=== PATIENT | female | born 1945 | race Caucasian/White ===

== ENCOUNTER 2019-09-21 08:50 | Outpatient (CLI) | payer OTHER, SELFPAY ==
--- NOTE | ~2019-09-21 | MM_ITS ---
EXAMINATION: MM screening gustavo BI w cricket HISTORY: Screening mammogram TECHNIQUE: Craniocaudal and mediolateral oblique 3-D tomosynthesis images were obtained and synthetic 2-D images were generated. CAD analysis was submitted and interpreted. COMPARISON: 09/10/2018, 09/07/2017, 08/28/2016 bilateral digital screening mammogram examinations BREAST PARENCHYMAL COMPOSITION: The breasts are heterogeneously dense, which may obscure small masses . No FINDINGS: Stable bilateral small benign intramammary lymph nodes. Minimal benign calcification. There is no evidence of suspicious mass, calcification, or architectural distortion to suggest malignancy in either breast. There has been no suspicious interval change. IMPRESSION: 1. No mammographic evidence of malignancy. 2. Recommend routine screening mammography in one year. BI-RADS Category 2: Benign finding(s). Reviewed, dictated and finalized at location A. R OPERATOR
== END 2019-09-21 08:51 | disposition home or self-care (01) ==
LOC: ANHIMG 08:53
PROVIDERS: PCP Family Medicine; Visit Provider Nurse Practitioner Family
DX: Z12.31 Encounter for screening mammogram for malignant neoplasm of breast (principal)
CPT/HCPCS: 77063; 77067

== ENCOUNTER 2020-03-30 15:55 | Emergency (ER) | payer OTHER, SELFPAY ==
[2020-03-30 16:04] VITALS: BP 183/86; PULSE 84; RESP 16; TEMP 36.4; O2SAT 100
--- NOTE | 2020-03-30 16:23 | ED.ABDPAIN ---
HPI - Abdominal Pain General Chief Complaint: Urogenital-Female Stated Complaint: pos kidney infection Source: patient Mode of arrival: ambulatory Limitations: no limitations History of Present Illness HPI narrative: Patient is a 74-year-old female who presents complaining of right sided back pain x2 weeks. She reports recently diagnosed with UTI and reports infection in kidneys . She reports that she continues to take antibiotics at this time. She reports urinary symptoms have decreased but back pain remains. She reports she takes gabapentin and meloxicam daily without relief. She reports pain increases when laying down and with position changes. She denies all other complaints. Related Data Home Medications Medication Instructions Recorded Confirmed ascorbic acid (vitamin C) 500 mg 500 mg PO DAILY 07/04/19 03/22/20 tablet calcium phosphate-vitamin D3 600 1 tablet PO DAILY tablet 07/04/19 03/22/20 mg-125 unit tablet gabapentin 100 mg capsule 100 mg PO TID 07/04/19 03/22/20 qafkfqkxqbr-qgozawsajyn-nqd D3 750 tablet PO 07/04/19 03/22/20 mg-600 mg-500 unit tablet loratadine 10 mg tablet 10 mg PO DAILY 07/04/19 03/22/20 multivitamin 1 tablet PO DAILY 07/04/19 03/22/20 Allergies Allergy/AdvReac Type Severity Reaction Status Date / Time No Known Allergies Allergy Unverified 03/22/20 08:12 Review of Systems Review of Systems: Narrative: CONSTITUTIONAL: Denies fever, chills, or sweats. EYES: Denies visual changes, redness, or discharge. ENT: Denies rhinorrhea, congestion, sore throat, or otalgia. CARDIOVASCULAR: Denies chest pain, palpitations, or edema. RESPIRATORY: Denies cough or dyspnea. GASTROINTESTINAL: Denies abdominal pain, nausea, vomiting, or diarrhea. GENITOURINARY: Denies dysuria or hematuria. SKIN: Denies rash or itching. MUSCULOSKELETAL: Reports back pain, denies joint pain, or myalgia. NEUROLOGIC: Denies headache, numbness, dizziness, or weakness. PSYCHIATRIC: Denies anxiety or depression. [facility] Past Medical History Medical History Anxiety Fibromyalgia Insomnia Osteopenia Family History Family History Mother Family history of arthritis Family history of congestive heart failure Father Family history of chronic obstructive pulmonary disease Family history of lymphoma Patient's father is Grandparent Family history of malignant neoplasm of breast Diabetes mellitus Social History Social History Smoking status: Never smoker Alcohol intake: never Exam Narrative: Exam Narrative: GENERAL: Well-appearing, well-nourished, and in no acute distress. HEAD: Normocephalic, atraumatic. EYES: EOMI. No redness or drainage. Conjunctiva are normal. ENT: Mucous membranes pink and moist. CHEST: No respiratory distress. Clear to auscultation. HEART: Regular rate and rhythm. No murmur appreciated. Normal peripheral pulses. GI: Soft, nontender without rebound, or guarding. No distention. MUSCULOSKELETAL: No bony tenderness. EXTREMITIES: Normal range of motion. No edema. SKIN: Warm, dry, no rash. NEURO: No focal deficits. Alert and oriented x3. Gait steady. PSYCH: Normal affect. No signs of depression or anxiety. Course Vital Signs Vital signs: Vital Signs Temperature 36.4 C L 03/30/20 16:04 Pulse Rate 84 03/30/20 16:04 Respiratory Rate 16 03/30/20 16:04 Blood Pressure 183/86 H 03/30/20 16:04 Pulse Oximetry 100 03/30/20 16:04 Temperature 36.4 C L 03/30/20 16:04 Pulse Rate 84 03/30/20 16:04 Respiratory Rate 16 03/30/20 16:04 Blood Pressure 183/86 H 03/30/20 16:04 Pulse Oximetry 100 03/30/20 16:04 Reviewed. Patient has been instructed to follow-up with her PCP regarding her blood pressure. MDM - Abdominal Pain MDM Narrative Medical decision making narra
== END 2020-03-30 16:46 | disposition home or self-care (01) ==
PROVIDERS: Emergency Provider Nurse Practitioner; PCP Nurse Practitioner Family
DX: M54.9 Dorsalgia, unspecified (principal); M79.7 Fibromyalgia; M85.80 Other specified disorders of bone density and structure, unspecified site
CPT/HCPCS: 81003; 99213; G0463

== ENCOUNTER → 2020-04-03 08:45 | Outpatient (CLI) | payer OTHER, SELFPAY ==
--- NOTE | ~2020-04-03 | XR_ITS ---
EXAMINATION: XR lumbar spine 2-3V EXAM DATE: 04/03/2020 09:00 INDICATION: Right low back pain for 3 weeks. TECHNIQUE: Lumber spine frontal, lateral, lateral L5-S1 projections for interpretation. There is no prior study for comparison. FINDINGS: There is 3-4 mm anterolisthesis L4 on L5. The vertebral bodies are otherwise aligned. Evid ence of mild thoracolumbar disc disease, but heights are maintained. There is moderate lumbar facet a rthropathy. Mild thoracolumbar levoscoliosis. Sacrum, sacroiliac joints, sacral arcuate lines are int act. Paraspinal soft tissue is unremarkable. IMPRESSION: 1. Moderate lumbar facet arthropathy. 2. Grade 1 anterolisthesis L4 on L5 without spondylolysis. Reviewed, dictated and finalized at location A.
== END ==
PROVIDERS: PCP Family Medicine; Visit Provider Family Medicine
DX: M47.896 Other spondylosis, lumbar region (principal)
CPT/HCPCS: 72100

== ENCOUNTER 2021-01-11 07:41 | Outpatient (CLI) | payer OTHER, SELFPAY ==
--- NOTE | ~2021-01-11 | MM_ITS ---
EXAMINATION: MM screening gustavo BI w cricket HISTORY: Screening TECHNIQUE: Craniocaudal and mediolateral oblique 3-D tomosynthesis images were obtained and synthetic 2-D images were generated. CAD analysis was submitted and interpreted. COMPARISON: Comparison to multiple prior studies sequentially, with oldest reviewed study dated 04/2017. BREAST PARENCHYMAL COMPOSITION: The breasts are heterogeneously dense, which may obscure small masses . FINDINGS: Bilateral nodular asymmetries are stable. There is no evidence of suspicious mass, calcific ation, or architectural distortion to suggest malignancy in either breast. There has been no suspicio us interval change. IMPRESSION: 1. No mammographic evidence of malignancy. 2. Recommend routine screening mammography in one year. BI-RADS Category 2: Benign finding(s). Reviewed, dictated and finalized at location A.
--- NOTE | ~2021-01-11 | DEXA_ITS ---
Bone Density Report Name: Loida Thomas Age: 75 Sex: Female Ethnicity: White Date of : 1945 Indication: osteopenia; monitoring treatment; parental hip fracture; height loss; prior fracture; postmenopausal Referring Provider: June Clifford Study: Bone densitometry was performed. Exam Date: January 11, 2021 Accession number: [id number] Bone Density: Region BMD T-score Z-score Classification AP Spine (L1-L4) 0.910 -1.2 1.1 Osteopenia Femoral Neck (Left) 0.640 -1.9 0.2 Osteopenia Total Hip (Left) 0.805 -1.1 0.6 Osteopenia Total Hip Bilateral Avg 0.814 -1.1 0.7 Osteopenia Femoral Neck (Right) 0.624 -2.0 0.0 Osteopenia Total Hip (Right) 0.822 -1.0 0.8 Normal World Health Organization criteria for BMD impression classify patients as: Normal (T-score at or above -1.0), Osteopenia (T-score between -1.0 and -2.5), or Osteoporosis (T-score at or below -2.5). 10-year Fracture Risk: FRAX not reported because: Treated for osteoporosis Previous Exams: Region Exam Age BMD T-score BMD Change BMD Change Date g/cm2 vs Baseline vs Previous AP Spine(L1-L4) 01/11/2021 75 0.910 -1.2 0.061(7.1%)# 0.054(6.3%)* 09/07/2017 72 0.855 -1.7 0.006(0.7%)# 0.012(1.5%) 04/23/2015 69 0.843 -1.9 -0.006(-0.7%)# -0.006(-0.7%)# 01/06/2013 67 0.849 -1.8 Total Hip(Left) 01/11/2021 75 0.805 -1.1 -0.088(-9.9%)# -0.060(-6.9%)* 09/07/2017 72 0.865 -0.6 -0.028(-3.2%)# 0.047(5.7%)* 04/23/2015 69 0.818 -1.0 -0.075(-8.4%)# -0.075(-8.4%)# 01/06/2013 67 0.893 -0.4 Total Hip(Right) 01/11/2021 75 0.822 -1.0 -0.075(-8.3%)# -0.035(-4.1%)* 09/07/2017 72 0.857 -0.7 -0.040(-4.5%)# 0.013(1.5%) 04/23/2015 69 0.844 -0.8 -0.053(-5.9%)# -0.053(-5.9%)# 01/06/2013 67 0.897 -0.4 *Denotes significance at 95% confidence level, LSC for AP Spine = 0.022 g/cm2, LSC for Total Hip = 0.027 g/cm2 Clinical Information Provided by Patient: Has had a low trauma fracture Parent has had a hip fracture Is being treated for osteoporosis Has used the following medications: Fosamax (i.e. alendronate), Vitamin D, Calcium Patient maximum height was 67 Menopause Age: 52 Drinks caffeinated beverages Onset of menses at age 14 Number of children 2 Impression: The patient has low bone mass, based on the Right Femoral Neck T-score. The patient has risk factors, including: parental hip fracture, previous fracture. The BMD for the Total Hip(Left) dec
== END 2021-01-11 07:42 | disposition home or self-care (01) ==
LOC: ANHIMG 07:45
PROVIDERS: PCP Family Medicine; Visit Provider Nurse Practitioner Family
DX: Z12.31 Encounter for screening mammogram for malignant neoplasm of breast (principal); Z78.0 Asymptomatic menopausal state; M85.88 Other specified disorders of bone density and structure, other site; M85.852 Other specified disorders of bone density and structure, left thigh; M85.851 Other specified disorders of bone density and structure, right thigh
CPT/HCPCS: 77063; 77067; 77080

== ENCOUNTER 2021-02-28 01:48 | Day surgery (SDC) | payer OTHER, SELFPAY ==
[2021-02-14 09:57] VITALS: BMI 29.0
[2021-02-28 08:54] VITALS: BP 177/87; PULSE 83; RESP 16; TEMP 36.8; O2SAT 100
[2021-02-28] MEDS: LACTATED RINGERS 1,000 ML 150 ML IV CONT (09:02)
--- NOTE | 2021-02-28 09:25 | WPDGICN ---
Assessment and Plan Assessment and plan (1) History of colon polyps: Code(s): Z86.010 - Personal history of colonic polyps Status: Acute Assessment and Plan: Patient presents for screening colonoscopy. She has a prior history of colon polyps in 2014. GI Consult Note Consult date/time: 02/28/21 09:25 HPI: Loida Thomas is a 75 year old female Presents for screening colonoscopy. Patient has a history of adenomatous colon polyp removed from the colon 2014. She reports that her current weight appetite bowel movements are normal. She denies abdominal pain. She has had no blood in her stools. Family history is noncontributory. Review of Systems Review of Systems: All systems reviewed & are unremarkable except as noted in HPI and below PMFSH Past Medical History Medical History (Updated 02/28/21 @ 09:26 by Diego Anderson MD) Anxiety Fibromyalgia Hyperlipidemia Insomnia Normal mammography (~01/2021) Osteopenia Family History Family History Mother Family history of arthritis Family history of congestive heart failure Father Family history of chronic obstructive pulmonary disease Family history of lymphoma Patient's father is Grandparent Family history of malignant neoplasm of breast Diabetes mellitus Social History Social History Smoking status: Never smoker Second hand tobacco smoke exposure: No Alcohol intake: current Alcohol use details: consumes 1 gin/tonic socially Substance use: never Substance use type: does not use Living arrangements: with family Gender identity (if verbalized by the patient): Female Meds Home Medications and Allergies Home Medications Medication Instructions Recorded Confirmed Type ascorbic acid (vitamin C) 500 mg 500 mg PO DAILY 07/04/19 02/14/21 History tablet calcium phosphate-vitamin D3 600 1 tablet PO DAILY tablet 07/04/19 02/14/21 History mg-125 unit tablet zxkisolmcce-rbavjkqsmna-xcv D3 750 tablet PO 07/04/19 11/27/20 History mg-600 mg-500 unit tablet multivitamin 1 tablet PO DAILY 07/04/19 02/14/21 History cetirizine 10 mg capsule 10 mg PO ONCE cap 05/29/20 02/14/21 History amitriptyline 50 mg tablet 50 mg PO DAILY #90 tablet 11/27/20 02/14/21 Rx duloxetine 30 mg capsule,delayed 30 mg PO DAILY #90 cap 11/27/20 02/28/21 Rx release meloxicam 7.5 mg tablet 7.5 mg PO DAILY #90 tablet 11/27/20 02/28/21 Rx zolpidem [Ambien] See Rx Instructions PO .at bedtime 02/14/21 02/14/21 History PRN Allergies Allergy/AdvReac Type Severity Reaction Status Date / Time No Known Allergies Allergy Verified 02/28/21 08:52 Vital Signs Vital Signs - 24 hr 02/28/21 08:54 Temperature 98.3 F Pulse Rate 83 Respiratory Rate 16 Blood Pressure 177/87 H Pulse Oximetry 100 Exam Narrative: Exam Narrative: Physical exam reveals patient to be alert. Vital signs stable. HEENT exam is unremarkable. Patient is anicteric. Lungs are clear to auscultation and percussion. Heart is without murmur or extra sounds. Abdominal exam bowel sounds are present soft nontender with no organomegaly. Digital external rectal exam is normal.
--- NOTE | 2021-02-28 09:41 | WPDANESEPPF ---
Anes - Initial Pre Proc Eval Procedure: Operation Date: 02/28/21 10:15 Proposed Procedures p Screening Colonoscopy - Diego Anderson MD Date/Time: 02/28/21 09:41 Surgeon: Diego Anderson MD Pre Op Diagnosis: hx of colon polyps Patient Data Age: 75 Gender: F Height: 1.68 m Weight: 82.6 kg Last Vital Signs Temp 36.8 C 02/28/21 08:54 Pulse 83 02/28/21 08:54 Resp 16 02/28/21 08:54 BP 177/87 H 02/28/21 08:54 Pulse Ox 100 02/28/21 08:54 Allergies Allergy/AdvReac Type Severity Reaction Status Date / Time No Known Allergies Allergy Verified 02/28/21 08:52 Home Medications Medication Instructions Recorded Confirmed Type ascorbic acid (vitamin C) 500 mg 500 mg PO DAILY 07/04/19 02/14/21 History tablet calcium phosphate-vitamin D3 600 1 tablet PO DAILY tablet 07/04/19 02/14/21 History mg-125 unit tablet nlqcvaadhfh-kezfmaiijhu-pwt D3 750 tablet PO 07/04/19 11/27/20 History mg-600 mg-500 unit tablet multivitamin 1 tablet PO DAILY 07/04/19 02/14/21 History cetirizine 10 mg capsule 10 mg PO ONCE cap 05/29/20 02/14/21 History amitriptyline 50 mg tablet 50 mg PO DAILY #90 tablet 11/27/20 02/14/21 Rx duloxetine 30 mg capsule,delayed 30 mg PO DAILY #90 cap 11/27/20 02/28/21 Rx release meloxicam 7.5 mg tablet 7.5 mg PO DAILY #90 tablet 11/27/20 02/28/21 Rx zolpidem [Ambien] See Rx Instructions PO .at bedtime 02/14/21 02/14/21 History PRN Patient hx anesthesia problems: none Family hx anesthesia problems: none PMFSH Past Medical History Medical History Anxiety Fibromyalgia Hyperlipidemia Insomnia Normal mammography (~01/2021) Osteopenia Family History Family History Mother Family history of arthritis Family history of congestive heart failure Father Family history of chronic obstructive pulmonary disease Family history of lymphoma Patient's father is Grandparent Family history of malignant neoplasm of breast Diabetes mellitus Social History Social History Smoking status: Never smoker Second hand tobacco smoke exposure: No Alcohol intake: current Alcohol use details: consumes 1 gin/tonic socially Substance use: never Substance use type: does not use Living arrangements: with family Gender identity (if verbalized by the patient): Female Anes - Eval Final PreProcedure Day of Procedure 02/28/21 09:41 Patient weight: overweight Heart: regular rate and rhythm Lungs: clear to auscultation Airway: Mallampati scale class II Neurological: alert and oriented Last oral intake: >/= 8 hours ASA classification: III Emergent: no Anesthetic plan: proceed Anesthesia type and monitoring: general GIVS and standard monitoring Informed Consent: The patient's anesthetic plan and its attendant risks and benefits were discussed with the patient/family/POA. Questions were solicited and answers provided to the satisfaction of the patient/family/POA.
[2021-02-28 10:26] VITALS: BP 147/74; PULSE 69; RESP 23; O2SAT 100
[2021-02-28 10:36] VITALS: BP 147/65; PULSE 67; RESP 23; O2SAT 100
[2021-02-28 10:46] VITALS: BP 196/67; PULSE 66; RESP 23; O2SAT 100
== END 2021-02-28 11:01 | disposition home or self-care (01) ==
PROVIDERS: PCP Family Medicine; Visit Provider Internal Medicine Gastroenterology
PROC: 0DJD8ZZ Inspection of Lower Intestinal Tract, Via Natural or Artificial Opening Endoscopic (ICD-10-PCS; CPT 45378; principal; 2021-02-28 10:15)
DX: Z12.11 Encounter for screening for malignant neoplasm of colon (principal); K64.8 Other hemorrhoids; Z86.010 Personal history of colon polyps; E78.5 Hyperlipidemia, unspecified; M79.7 Fibromyalgia; F41.9 Anxiety disorder, unspecified; M85.80 Other specified disorders of bone density and structure, unspecified site
CPT/HCPCS: G0105; J2704; J7120

== ENCOUNTER 2022-01-30 15:11 | Outpatient (CLI) | payer OTHER, SELFPAY ==
--- NOTE | ~2022-01-30 | MM_ITS ---
EXAMINATION: MM screening gustavo BI w cricket HISTORY: . TECHNIQUE: Craniocaudal and mediolateral oblique 3-D tomosynthesis images were obtained and synthetic 2-D images were generated. CAD analysis was submitted and interpreted. COMPARISON: Serial bilateral screening mammogram examinations since 09/07/2017 BREAST PARENCHYMAL COMPOSITION: There are scattered areas of fibroglandular density. FINDINGS: Small bilateral posterior upper breast circumscribed intramammary lymph nodes, stable since 09/07/2017. There is no evidence of suspicious mass, calcification, or architectural distortion to li ggest malignancy in either breast. There has been no suspicious interval change. IMPRESSION: 1. No mammographic evidence of malignancy. 2. Recommend routine screening mammography in one year. BI-RADS Category 2: Benign finding(s). Reviewed, dictated and finalized at location A.
== END 2022-01-30 15:12 | disposition home or self-care (01) ==
LOC: ANHIMG 15:13
PROVIDERS: PCP Family Medicine; Visit Provider Nurse Practitioner Family
DX: Z12.31 Encounter for screening mammogram for malignant neoplasm of breast (principal)
CPT/HCPCS: 77063; 77067

== ENCOUNTER 2022-02-07 12:01 | Emergency (ER) | payer OTHER, SELFPAY ==
--- NOTE | ~2022-02-07 | CT_ITS ---
EXAMINATION: CT brain wo con INDICATION: Head injury COMPARISON: None TECHNIQUE: Standard unenhanced head CT. The dose-length product (DLP) was 605.33 mGy-cm. The mA was a djusted according to patient size. Iterative reconstruction technique was employed. FINDINGS: There is no acute intraparenchymal hemorrhage. No evidence of mass lesion. No evidence of a cute infarction. There is mild periventricular and subcortical hypodensity probably related to small vessel ischemic disease. There is mild prominence of the sulci and ventricles related to cerebral atr ophy. Intracranial calcified cerebral atherosclerosis is noted. There are no extra-axial collections. There is no mass effect or midline shift. Changes in the globes are likely from ocular lens surgery. There is a fracture of the right inferior orbital wall. The visualized sinuses and mastoid air cells are well aerated. IMPRESSION: 1. No acute intracranial abnormality. 2. Right inferior orbital wall fracture. 3. Age related findings. Reviewed, dictated and finalized at location F.
--- NOTE | ~2022-02-07 | CT_ITS ---
EXAMINATION: CT facial & cervical spine wo DATE: 02/07/2022 13:32 INDICATION: Head injury TECHNIQUE: Computed tomography (CT) of the maxillofacial region and cervical spine was performed with out intravenous contrast. The dose-length product (DLP) was 270.51 mGy-cm. Automated exposure control and iterative reconstruction technique were employed. COMPARISON: None FINDINGS: MAXILLOFACIAL CT: There is an acute fracture of the right inferior orbital wall. No muscular entrapment is identified. There are also mildly comminuted fractures in the lateral and anterior valentin of the right maxillary s inus. There is right periorbital and facial soft tissue swelling. CERVICAL SPINE CT: There are 2 mm of retrolisthesis of C3 on C4. The vertebral body heights are normal. There is moderat e loss of intervertebral disc space height from C3-4 through C6-7. There is no fracture. The odontoid is intact. There is severe multilevel facet and uncovertebral joint osteoarthritis. IMPRESSION: 1. Acute fracture of the right inferior orbital wall and acute fractures of the lateral and anterior right maxillary sinus valentin. 2. Severe cervical spondylosis without acute cervical spine fracture. Reviewed, dictated and finalized at location F.
--- NOTE | ~2022-02-07 | CT_ITS ---
EXAMINATION: CT chest abdomen pelvis wo con DATE: 02/07/2022 13:32 INDICATION: Chest and abdominal pain after fall TECHNIQUE: Transaxial computed tomographic images of the chest, abdomen, and pelvis were obtained wit hout intravenous contrast. The dose-length product (DLP) was 1040.48 mGy-cm. Automated exposure contr ol and iterative reconstruction technique were employed. COMPARISON: None FINDINGS: CHEST CT: There is mild atelectasis. No focal airspace opacities are identified. There are small pleural effusi ons. No pneumothorax is identified. No pathologically enlarged thoracic lymph nodes are identified. T he heart size is normal. There is an age-indeterminate, comminuted fracture of the proximal right hum erus. There are acute fractures of the right third through ninth ribs. There are acute anterior fract ures of the left third through sixth ribs. There is mild thoracic spondylosis. ABDOMEN/PELVIS CT: There is a small sliding hiatal hernia. The liver, spleen, pancreas, gallbladder, and adrenal glands are normal. The kidneys are unremarkable. No pathologically enlarged abdominal or pelvic lymph nodes are identified. There is no free intraperitoneal gas or evidence of bowel obstruction. There is a sma ll fat-containing umbilical hernia. There is a chronic L1 compression fracture. IMPRESSION: 1. Acute bilateral rib fractures as described above. 2. Small pleural effusions and mild atelectasis, otherwise no acute thoracic abnormality 3. No acute abnormality of the abdomen or pelvis. Reviewed, dictated and finalized at location F. IMPRESSION: 1. Acute bilateral rib fractures as described above. 2. Small pleural effusions and mild atelectasis, otherwise no acute thoracic ab normality 3. No acute abnormality of the abdomen or pelvis.
[2022-02-07 12:07] VITALS: BP 156/94; PULSE 84; RESP 16; TEMP 36.7; O2SAT 100
--- NOTE | 2022-02-07 12:50 | ED.FALL ---
HPI - Fall General Chief Complaint: Fall Stated Complaint: fractured ribs Time Seen by Provider: 02/07/22 12:18 History of Present Illness HPI Narrative: 76-year-old female presents to the emergency room for evaluation of right-sided chest pain and head injury. Patient states that she was walking her dog on Thursday, when the dog took off pulling her forward causing her to land on her right side. Patient states she had bright sided rib cage pain that worsened with movement and breathing. Patient also states that she struck her head on the concrete. Denied any LOC or altered mental status. Patient was seen at outside urgent care earlier today and was diagnosed with multiple rib fractures. Patient was encouraged to seek care in ER for further evaluation. Related Data Home Medications Medication Instructions Recorded Confirmed ascorbic acid (vitamin C) 500 mg 500 mg PO DAILY 07/04/19 12/17/21 tablet (Vitamin C) calcium phosphate-vitamin D3 600 1 tablet PO DAILY 07/04/19 12/17/21 mg-125 unit tablet vcjoyefzcvo-zqbfmxztorw-sah D3 750 tablet PO 07/04/19 12/17/21 mg-600 mg-500 unit tablet multivitamin 1 tablet PO DAILY 07/04/19 12/17/21 cetirizine 10 mg capsule (Zyrtec) 10 mg PO ONCE 05/29/20 12/17/21 Allergies Allergy/AdvReac Type Severity Reaction Status Date / Time No Known Allergies Allergy Verified 02/07/22 12:20 Review of Systems Review of Systems: CONSTITUTIONAL: Denies fever, chills, or sweats. EYES: Denies visual changes, redness, or discharge. ENT: Denies rhinorrhea, congestion, sore throat, or otalgia. CARDIOVASCULAR: Denies chest pain, palpitations, or edema. RESPIRATORY: Denies cough or dyspnea. GASTROINTESTINAL: Denies abdominal pain, nausea, vomiting, or diarrhea. GENITOURINARY: Denies dysuria or hematuria. SKIN: Denies rash or itching. MUSCULOSKELETAL: Reports right rib cage pain NEUROLOGIC: Denies headache, numbness, dizziness, or weakness. PSYCHIATRIC: Denies anxiety or depression. [facility] Past Medical History Medical History Anxiety Dysphagia Essential hypertension Fibromyalgia GERD without esophagitis Hyperlipidemia Insomnia Normal mammography (~01/2021) Osteopenia Surgical History Surgical History H/O varicose vein stripping (~2020) Family History Family History Mother Family history of arthritis Family history of congestive heart failure Father Family history of chronic obstructive pulmonary disease Family history of lymphoma Patient's father is Grandparent Family history of malignant neoplasm of breast Diabetes mellitus Social History Social History Smoking status: Never smoker Second hand tobacco smoke exposure: No Alcohol intake: current Alcohol use details: consumes 1 gin/tonic socially Substance use: never Substance use type: does not use Gender identity (if verbalized by the patient): Female Exam Narrative: GENERAL: Well-appearing, well-nourished, no physical limitations, and in no acute distress. HEAD: Normocephalic, soft tissue swelling, tenderness, and ecchymosis over the right maxilla. No bony abnormality. EYES: Conjunctivae normal, PERRLA and EOMI. ENT: External nose normal, Nares clear, no rhinorrhea or epistaxis. Mucous membranes moist. External ears normal, bilateral TMs normal bilaterally NECK: Supple. No meningeal signs. No adenopathy or masses. No carotid bruits or JVD CHEST: Clear to auscultation. No respiratory distress. No wheezes rales or rhonchi. Tenderness to the right lateral rib cage HEART: Regular rate and rhythm. No murmur heard. Normal peripheral pulses. ABDOMEN: Soft, nontender, nondistended, normal active bowel sounds. : Normal external male/female exam. BACK: No CVA tenderness;
[2022-02-07] MEDS: ACETAMINOPHEN 500 MG TABLET 1000 MG PO (15:41)
== END 2022-02-07 16:42 | disposition home or self-care (01) ==
PROVIDERS: Emergency Provider Nurse Practitioner Family; PCP Family Medicine
DX: S02.31XA Fracture of orbital floor, right side, initial encounter for closed fracture (principal); S02.40CA Maxillary fracture, right side, initial encounter for closed fracture; S22.43XA Multiple fractures of ribs, bilateral, initial encounter for closed fracture; E78.5 Hyperlipidemia, unspecified; I10 Essential (primary) hypertension; X58.XXXA Exposure to other specified factors, initial encounter; Y93.K1 Activity, walking an animal
CPT/HCPCS: 70450; 70486; 71250; 72125; 74176; 99284; A9270

== ENCOUNTER 2023-03-20 08:27 | Outpatient (CLI) | payer OTHER, SELFPAY ==
--- NOTE | ~2023-03-20 | DEXA_ITS ---
Bone Density Report Name: WILL LAURENT Age: 77 Sex: Female Ethnicity: White Date of : 1945 Indication: postmenopausal; osteopenia; parental hip fracture; height loss; prior fracture; Referring Provider: JULIA, GEORGIA Romeo Study: Bone densitometry was performed. Exam Date: March 20, 2023 Accession number: [id number] Bone Density: Region BMD T-score Z-score Classification AP Spine(L1-L4) 0.896 -1.4 1.1 Osteopenia Femoral Neck (Left) 0.687 -1.5 0.7 Osteopenia Total Hip (Left) 0.838 -0.9 1.0 Normal Femoral Neck (Right) 0.654 -1.8 0.4 Osteopenia Total Hip (Right) 0.818 -1.0 0.9 Normal Total Hip Mean 0.828 -1.0 1.0 Normal World Health Organization criteria for BMD impression classify patients as: Normal (T-score at or above -1.0), Osteopenia (T-score between -1.0 and -2.5), or Osteoporosis (T-score at or below -2.5). 10-year Fracture Risk(1): Major Osteoporotic Fracture 30% Hip Fracture 16% Reported Risk Factors: [place] (), Neck BMD=0.654, BMI=29.9, previous fracture, parental fracture (1) FRAX(R) Version 3.08. Fracture probability calculated for an untreated patient. Fracture probability may be lower if the patient has received treatment. Previous Exams: Region Exam Age BMD T-score BMD Change BMD Change Date g/cm2 vs Baseline vs Previous AP Spine (L1-L4) 03/20/2023 77 0.896 -1.4 0.053 (6.3%)* -0.014 (-1.5%) 01/11/2021 75 0.910 -1.2 0.067 (7.9%)* 0.054 (6.3%)* 09/07/2017 72 0.855 -1.7 0.012 (1.5%) 0.012 (1.5%) 04/23/2015 69 0.843 -1.9 Total Hip(Left) 03/20/2023 77 0.838 -0.9 0.020 (2.4%) 0.032 (4.0%)* 01/11/2021 75 0.805 -1.1 -0.013 (-1.5%) -0.060 (-6.9%) 09/07/2017 72 0.865 -0.6 0.047 (5.7%)* 0.047 (5.7%)* 04/23/2015 69 0.818 -1.0 Total Hip(Right) 03/20/2023 77 0.818 -1.0 -0.026 (-3.1%) -0.004 (-0.5%) 01/11/2021 75 0.822 -1.0 -0.022 (-2.6%) -0.035 (-4.1%) 09/07/2017 72 0.857 -0.7 0.013 (1.5%) 0.013 (1.5%) 04/23/2015 69 0.844 -0.8 *Denotes significance at 95% confidence level, LSC for AP Spine = 0.022 g/cm2, LSC for Total Hip = 0.027 g/cm2 Clinical Information Provided by Patient: Has had a low trauma fracture Parent has had a hip fracture Has used the following medications: Vitamin D, Calcium Patient maximum height was 67 Menopause Age: 52 Drinks caffeinated beverages Onset of menses at age 13 Number of children 2
--- NOTE | ~2023-03-20 | MM_ITS ---
EXAMINATION: MM screening [facility] BI w cricket HISTORY: Screening mammogram TECHNIQUE: Craniocaudal and mediolateral oblique 3-D tomosynthesis images were obtained and synthetic 2-D images were generated. CAD analysis was submitted and interpreted. COMPARISON: 01/30/2022, 01/11/2021, 09/21/2019 BREAST PARENCHYMAL COMPOSITION: There are scattered areas of fibroglandular density. FINDINGS: No suspicious mass, calcification, or architectural distortion are identified in either satya ast to suggest malignancy. There has been no suspicious interval change. IMPRESSION: 1. No mammographic evidence of malignancy. 2. Recommend routine screening mammography in one year. BI-RADS Category 1: Negative Reviewed, dictated and finalized at location A.
== END 2023-03-20 08:28 | disposition home or self-care (01) ==
LOC: ANHIMG 08:28
PROVIDERS: PCP Family Medicine; Visit Provider Nurse Practitioner Family
DX: Z12.31 Encounter for screening mammogram for malignant neoplasm of breast (principal); Z78.0 Asymptomatic menopausal state; M85.88 Other specified disorders of bone density and structure, other site; M85.852 Other specified disorders of bone density and structure, left thigh; M85.851 Other specified disorders of bone density and structure, right thigh
CPT/HCPCS: 77063; 77067; 77080

== ENCOUNTER → 2023-08-13 08:43 | Outpatient (CLI) | payer OTHER, SELFPAY ==
--- NOTE | ~2023-08-13 | US_ITS ---
US abdomen complete DATE: 08/13/2023 09:08 INDICATION: Abdominal pain TECHNIQUE: Real-time imaging, color flow imaging and Doppler analysis of the abdomen COMPARISON: 02/07/2022 CT chest abdomen FINDINGS: No hepatic space-occupying mass lesion is evident. Normal hepatopedal portal venous flow di rection. No gallstones, gallbladder wall thickening or pericholecystic fluid collection. Negative sonographic Lindsey's sign. The common bile duct measures 4 mm, within normal limits. The pancreatic tail is obscured. The pancreas otherwise appears unremarkable. No renal mass lesion or hydronephrosis. The right kidney measures approximately 9 cm length, left kid mame 9.3 cm. No evidence of abdominal aortic aneurysm. The inferior vena cava is unremarkable. Normal splenic size. IMPRESSION: No significant abnormality Reviewed, dictated and finalized at Location A. Reviewed, dictated and finalized at location L. IC WORKS COMMISSIONER IMPRESSION: No significant abnormality
== END ==
PROVIDERS: PCP Family Medicine; Visit Provider Nurse Practitioner Family
DX: R10.30 Lower abdominal pain, unspecified (principal)
CPT/HCPCS: 76700

== ENCOUNTER 2024-01-29 08:48 | Outpatient (CLI) | payer OTHER, SELFPAY ==
--- NOTE | ~2024-01-29 | XR_ITS ---
EXAMINATION: XR_KNEE1-2VLT_CR, XR_KNEE1-2VRT_CR DATE: 01/29/2024 08:59 INDICATION: 304 months of nontraumatic bilateral knee pain TECHNIQUE: 1. AP and lateral views of the left knee were obtained. 2. AP and lateral views of the right knee were obtained.. COMPARISON: None. FINDINGS: Alignment is normal at the bilateral knees. No fractures. Joint spaces appear relatively preserved wi th small marginal osteophytes at the bilateral patellofemoral compartments and at the lateral compart ment of the right knee. No knee joint effusions. There is some subcutaneous varicosities about the kn ees most prominent lateral to the right knee. IMPRESSION: 1. 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 Reviewed, dictated and finalized at location A. IMPRESSION: 1. 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
== END 2024-01-29 08:49 ==
LOC: GOSHIMG 08:49
PROVIDERS: PCP Family Medicine; Visit Provider Nurse Practitioner Family
DX: M17.0 Bilateral primary osteoarthritis of knee (principal)
CPT/HCPCS: 73560

== ENCOUNTER 2024-03-22 09:17 | Outpatient (CLI) | payer OTHER, SELFPAY ==
--- NOTE | ~2024-03-22 | MM_ITS ---
EXAMINATION: MM screening [facility] BI w cricket HISTORY: Screening TECHNIQUE: Craniocaudal and mediolateral oblique 3-D tomosynthesis images were obtained and synthetic 2-D images were generated. CAD analysis was submitted and interpreted. COMPARISON: Comparison to multiple prior studies sequentially, with oldest reviewed study dated 2017. BREAST PARENCHYMAL COMPOSITION: Not dense: There are scattered areas of fibroglandular density. FINDINGS: The right breast is stable without evidence for malignancy. There is a developing cluster o f indeterminate calcifications in the lower outer quadrant of the left breast, middle third. IMPRESSION: 1. Developing cluster of indeterminate left breast calcifications, lower outer quadrant, middle third . 2. Magnification views are recommended. BI-RADS Category 0: Incomplete: Needs additional imaging evaluation. Reviewed, dictated and finalized at location B. IMPRESSION: 1. Developing cluster of indeterminate left breast calcifications, lower outer quadrant, middle third. 2. Magnification views are recommended. BI-RADS Category 0: Incomplete: Needs additional imaging evaluation.
== END 2024-03-22 09:18 | disposition home or self-care (01) ==
PROVIDERS: PCP Family Medicine; Visit Provider Nurse Practitioner Family
DX: Z12.31 Encounter for screening mammogram for malignant neoplasm of breast (principal); R92.8 Other abnormal and inconclusive findings on diagnostic imaging of breast
CPT/HCPCS: 77063; 77067

== ENCOUNTER 2024-04-14 10:39 | Outpatient (CLI) | payer OTHER, SELFPAY ==
--- NOTE | ~2024-04-14 | MM_ITS ---
EXAMINATION: MM diagnostic [facility] LT w cricket HISTORY: Follow-up left breast calcifications TECHNIQUE: Additional 3-D tomosynthesis images of the left breast were performed and synthetic 2-D im ages were generated. CAD analysis was submitted and interpreted. COMPARISON: Comparison to multiple prior studies sequentially, with oldest reviewed study dated 08/2018. BREAST PARENCHYMAL COMPOSITION: Not dense: There are scattered areas of fibroglandular density. FINDINGS: There is a cluster of indeterminate calcifications in the lower outer quadrant of the left breast, middle third. There are no suspicious masses or architectural distortion. IMPRESSION: 1. Clustered indeterminate left breast calcifications lower outer quadrant, middle third. 2. Stereotactic left breast biopsy recommended. BI-RADS category 4, suspicious findings. Reviewed, dictated and finalized at location B. IMPRESSION: 1. Clustered indeterminate left breast calcifications lower outer quadrant, mid dle third. 2. Stereotactic left breast biopsy recommended. BI-RADS category 4, suspicious findings.
== END 2024-04-14 10:40 | disposition home or self-care (01) ==
PROVIDERS: PCP Family Medicine; Visit Provider Family Medicine
DX: R92.8 Other abnormal and inconclusive findings on diagnostic imaging of breast (principal)
CPT/HCPCS: 77061; 77065; G0279

== ENCOUNTER 2024-05-26 09:16 | Outpatient (CLI) | payer OTHER, SELFPAY ==
--- NOTE | ~2024-05-26 | MM_ITS ---
MM post biopsy invasive LT, MM stereotactic specimen LT, MM stereotactic bx LT EXAMINATION: MM post biopsy invasive LT, MM stereotactic specimen LT, MM stereotactic bx LT INDICATION: Abnormal calcifications in the left breast. Stereotactic core biopsy is requested evalua te for malignancy.] BREAST PARENCHYMAL COMPOSITION: Not dense: There are scattered areas of fibroglandular density. TECHNIQUE AND FINDINGS: The risks and potential benefits of the procedure were discussed with the patient and written informe d consent was obtained. The patient was placed in the prone position clustered at the table with the left breast in craniocaudal compression, and the area of interest was localized and targeted utilizi ng digital imaging with stereotaxis. After sterile preparation of the skin, 1% lidocaine was utilized for local anesthesia at the skin pun cture site and 1% lidocaine with epinephrine was utilized for deeper local anesthesia/is about the bi opsy site. A 9G [employer] vacuum assisted biopsy needle was advanced to the level of the calcification o f interest from a inferior approach utilizing stereotactic guidance and a total of 6 tissue core biop sies were obtained. A specimen radiograph demonstrates that the calcifications of interest are included within the tissue cores. A tissue marker clip was then placed at the biopsy site. The needle was removed and hemosta sis was achieved. The patient tolerated the procedure well and there is no evidence of significant i mmediate complication. The patient was given verbal as well as written postprocedural instructions p rior to discharge from the department. Tissue cores were submitted to surgical pathology for histolo gic analysis. A 2-view left unilateral digital mammogram was obtained post procedure and this demonstrates that the tissue marker clip is in expected position.] IMPRESSION: 1. Successful stereotactic biopsy of calcifications in the lower central aspect of the left breast w ith post procedure mammogram for marker placement. Please refer to pathology report for histologic a nalysis. Reviewed, dictated and finalized at location B. IMPRESSION: 1. Successful stereotactic biopsy of calcifications in the lower central aspec t of the left breast with post procedure mammogram for marker placement. Pleas e refer to pathology report for histologic analysis. IMPRESSION: 1. Successful stereotactic biopsy of calcifications in the lower central aspec t of the left breast with post procedure mammogram for marker placement. Pleas e refer to pathology report for histologic analysis.
== END 2024-05-26 09:17 | disposition home or self-care (01) ==
PROVIDERS: PCP Family Medicine; Visit Provider Family Medicine
DX: R92.1 Mammographic calcification found on diagnostic imaging of breast (principal); N60.12 Diffuse cystic mastopathy of left breast; N62 Hypertrophy of breast
CPT/HCPCS: 19081; 88305

== ENCOUNTER 2024-08-17 12:57 | Outpatient (CLI) | payer OTHER, SELFPAY ==
--- NOTE | 2024-08-17 13:00 | ECHO_ITS ---
Patient Info Name: Loida Thomas Age: 79 years : 1945 Gender: Female Ht: 65 in Wt: 185 lbs BSA: 1.99 m2 HR: 71 bpm BP: 143 / 78 mmHg Heart Rhythm: Sinus Rhythm Technical Quality: Good Exam Date: 08/17/2024 1:27 PM Exam Location: Echo Lab Patient Status: Outpatient Admit Date: 08/17/2024 Staff Ordering Physician: June Clifford NP [employer] Manager: Laura Santo RDCS Attending Provider: June Clifford NP Referring Physician: Darrin GUERRA; Exam Type: CA echo doppler color flow Study Info Complete two-dimensional, color flow and Doppler transthoracic echocardiogram is performed. Summary 1. Complete two-dimensional, color flow and Doppler transthoracic echocardiogram is performed. 2. Left ventricular chamber dimension is normal. 3. Left ventricular systolic function is normal, estimated at 60-65%. 4. The left ventricular diastolic function is grade I diastolic dysfunction. 5. E/e' 13 is mildly elevated. 6. Left atrial chamber dimension is moderately enlarged. 7. There is mild aortic valve sclerosis. 8. There is mild aortic valve regurgitation. 9. The mitral valve has mildly calcified annulus. 10. There is mild mitral valve regurgitation. Left Ventricle E/e' 13 is mildly elevated. Left ventricular chamber dimension is normal. Left ventricular systolic function is normal, estimated at 60-65%. The left ventricular diastolic function is grade I diastolic dysfunction. Right Ventricle Right ventricular systolic function is normal and with normal TAPSE 1.8 cm. Right ventricular chamber dimension is normal. Left Atria Left atrial chamber dimension is moderately enlarged. Right Atria Right atrial chamber dimension is normal. Aortic Valve The aortic valve is trileaflet. There is mild aortic valve sclerosis. There is no aortic valve stenosis. There is mild aortic valve regurgitation. Pulmonic Valve There is no pulmonic regurgitation. Mitral Valve The mitral valve has mildly calcified annulus. There is no mitral valve stenosis. There is mild mitral valve regurgitation. Tricuspid Valve There is no tricuspid valve regurgitation. Pericardium/Pleural There is no pericardial effusion. Inferior Vena Cava Normal inferior vena cava with >50% collapse upon inspiration consistent with normal right atrial pressure, 5 mmHg. Aorta The aortic root size at the sinus of Valsalva is normal. Tricuspid Valve Name Value Normal Estimated PAP/RSVP RA Pressure 5 mmHg <=5 Report Signatures
== END 2024-08-17 12:58 | disposition home or self-care (01) ==
PROVIDERS: PCP Family Medicine; Visit Provider Nurse Practitioner Family
DX: R01.1 Cardiac murmur, unspecified (principal); I51.89 Other ill-defined heart diseases; I35.8 Other nonrheumatic aortic valve disorders; I34.81 Nonrheumatic mitral (valve) annulus calcification; I34.0 Nonrheumatic mitral (valve) insufficiency
CPT/HCPCS: 93306

== ENCOUNTER 2024-09-16 07:09 | Outpatient (CLI) | payer OTHER, SELFPAY ==
--- NOTE | ~2024-09-16 | MR_ITS ---
EXAMINATION: MR knee LT wo con DATE: 09/16/2024 07:43 INDICATION: Left knee pain TECHNIQUE: Magnetic resonance imaging (MRI) of the left knee was performed without intravenous contra st. Sequences included coronal PD-weighted FSE, coronal PD-weighted FS FSE, sagittal T2-weighted FSE , sagittal PD-weighted FS FSE and axial PD weighted fat saturated FSE. COMPARISON: None. FINDINGS: Medial compartment: Medial meniscus is normal. Deep chondral fissuring without degenerative subchondral changes along the anterior weightbearing medial femoral condyle. Small amount of shallow chondral fissuring at the estefania tral aspect of the medial tibial plateau. Lateral compartment: Discoid lateral meniscus with complex tear at the anterior horn and longitudinal vertical tear extend ing between the central portion of the meniscus and the posterior horn. Partial-thickness chondral ul ceration along the lateral tibial plateau and posterior weightbearing lateral femoral condyle. There is small region of subarticular edema-like signal change at the central aspect of the lateral tibial plateau. Patellofemoral compartment: There is full and near full-thickness cartilage loss extending across the central third of the patell a with scattered mild subarticular edema-like signal change. There is additional partial-thickness ca rtilage loss. Partial-thickness cartilage loss at the trochlea most prominent at the central aspect o f the medial trochlea where there is a tiny focus of subarticular edema-like signal change. Ligaments and tendons: At least partial tear of the anterior cruciate ligament the posterolateral bundle which appears thick ened with lax appearance to the ligament fibers. The anteromedial bundle appears more likely to remai n intact. There is some cystlike change at the intercondylar eminence underlying the footplate of the anterior cruciate ligament. The posterior cruciate ligament is normal. The medial collateral ligamen t and fibular collateral ligament complex are normal. Patellar tendon is normal. Mild tendinopathy wi thout tear of the distal quadriceps tendon. The visualized medial and lateral hamstring tendons as we ll as the iliotibial band are normal. Fluid: Small left knee joint effusion with mild synovitis at the suprapatellar pouch. No loose osteochondral bodies identified. Additional synovitis within a moderate-sized Wheeler's cyst the deeper multiloculat ed component cyst extending deep to the proximal pes anserinus. Osseous/other: Bone alignment is normal. No fracture or pathologic marrow replacing process. IMPRESSION: 1. At least partial anterior cruciate ligament tear involving the posterolateral bundle. The anterome dial bundle appears more likely spared. Correlate with physical exam to assess for degree of residual functional integrity. 2. Complex tear of the discoid lateral meniscus. 3. Tricompartmental osteoarthritis, moderate severity with high-grade chondromalacia in the patellofe moral compartment and mild with moderate grade chondral malacia in the medial compartment and moderat e to high-grade chondromalacia in the lateral compartment. 4. Small left knee joint effusion and moderate-sized Wheeler's cyst. Reviewed, dictated and finalized at location B. ONAL HR MANAGER IMPRESSION: 1. At least partial anterior cruciate ligament tear involving the posterolatera l bundle. The anteromedial bundle appears more likely spared. Correlate with ph ysical exam to assess for degree of residual functional integrity. 2. Complex tear of the discoid lateral meniscus. 3. Tricompartmental osteoarthritis, moderate severity with high-grade chondroma lacia in the patellofemoral compartment and mild with moderate grade chondral m alacia in the medial compartment and moderate to high-grade chondromalacia in t he lateral compartment. 4. Small left knee joint effusion and moderate-sized Wheeler's cyst.
== END 2024-09-16 07:10 | disposition home or self-care (01) ==
PROVIDERS: PCP Family Medicine; Visit Provider Nurse Practitioner Family
DX: S83.512A Sprain of anterior cruciate ligament of left knee, initial encounter (principal); M17.12 Unilateral primary osteoarthritis, left knee; M94.262 Chondromalacia, left knee; M25.462 Effusion, left knee; M71.22 Synovial cyst of popliteal space [Baker], left knee; X58.XXXA Exposure to other specified factors, initial encounter
CPT/HCPCS: 73721

== ENCOUNTER 2024-11-17 12:57 | Emergency (ER) | payer OTHER, SELFPAY ==
--- NOTE | ~2024-11-17 | XR_ITS ---
EXAM/ PROCEDURE: XR ankle RT min 3V - 11/17/2024 13:45 CDT HISTORY: 79 years old Female with pain and swelling lat Rt ankle, no injury COMPARISON: None available TECHNIQUE: 5 view(s) FINDINGS/ IMPRESSION: Age indeterminate fracture of the right lateral malleolus, at the base of the fibula. Given surroundi ng soft tissue swelling, this is likely an acute fracture. Correlate with point tenderness to assess chronicity. Plantar calcaneal spur. Joint space narrowing, subchondral sclerosis, subchondral cyst formation and osteophyte formation, co mpatible with mild osteoarthritis. Reviewed, dictated and finalized at location A.
[2024-11-17 13:13] VITALS: BP 129/83; PULSE 73; RESP 16; TEMP 36.3; O2SAT 100
--- NOTE | 2024-11-17 13:37 | ED.EXTPRO ---
HPI - Extremity Problem General Chief complaint: Extremity Problem,Nontraumatic Stated complaint: R ANKLE PAIN/SWELLING Time Seen by Provider: 11/17/24 13:38 Source: patient, RN notes reviewed and old records reviewed Mode of arrival: ambulatory Limitations: no limitations History of Present Illness HPI Narrative: 79-year-old female presents to the [facility] with complaints of right ankle pain and swelling for about 1 month. patient states that started as medial foot pain, has now progressed to medial and lateral ankle pain. Swelling noted to the lateral malleolus. Unknown injury. No bruising. Negative Homans sign. No posterior tenderness. Reports she does take meloxicam daily. Also has been taking Tylenol Onset (ago): month(s) (1) Related Data Home Medications ?Medication ?Instructions ?Recorded ?Confirmed ?Last Taken ?Type ascorbic acid (vitamin C) 500 mg 500 mg PO DAILY 07/04/19 07/18/24 Unknown History tablet (Vitamin C) calcium phosphate-vitamin D3 600 1 tablet PO DAILY 07/04/19 07/18/24 Unknown History mg-125 unit tablet multivitamin 1 tablet PO DAILY 07/04/19 07/18/24 Unknown History cetirizine 10 mg capsule (Zyrtec) 10 mg PO ONCE PRN 07/18/24 07/18/24 Unknown History Allergies Allergy/AdvReac Type Severity Reaction Status Date / Time No Known Allergies Allergy Verified 09/22/24 08:24 Review of Systems Review of Systems: All systems reviewed & are unremarkable except as noted in HPI and below Constitutional: Constitutional: Reports no additional constitutional complaints ENT: Reports system reviewed and no additional complaints, except as documented Cardiovascular: Cardiovascular: Reports no additional cardiovascular complaints, Denies chest pain and Denies dyspnea Respiratory: Respiratory: Reports no additional respiratory complaints, Denies chest congestion, Denies cough and Denies dyspnea Musculoskeletal: Musculoskeletal: Reports as per HPI, Reports abnormal gait, Reports arthralgias and Reports joint swelling Integumentary/Breasts: Skin/Breast: Reports system reviewed and no additional complaints, except as docu [facility] Past Medical History Medical History Effusion of knee joint Left knee pain Left knee DJD Right knee DJD Joint pain Knee buckling Fracture of facial bones (~02/2022) Multiple fractures of ribs of both sides (~02/2022) GERD without esophagitis Essential hypertension Dysphagia Hyperlipidemia Anxiety Insomnia Osteopenia Fibromyalgia Surgical History Surgical History H/O varicose vein stripping (~2020) Family History Family History Mother Family history of arthritis Family history of congestive heart failure Father Family history of chronic obstructive pulmonary disease Family history of lymphoma Patient's father is Grandparent Family history of malignant neoplasm of breast Diabetes mellitus Social History Social History Smoking status: Never smoker Second hand tobacco smoke exposure: No Alcohol intake: current Alcohol use details: consumes 1 gin/tonic socially Substance use: never Substance use type: does not use Do You Feel Safe in your Home?: Yes Lack of Transportation: No Lack of Food: Never True Current Housing: I Have Housing Concerned About Future Housing: No Difficulty Paying Gas/Electric Bills: No Difficulty Paying for Meds: No Currently Unemployed: No Education: Master's Degree or Higher Difficulty w/ Childcare or Family Care: No Living arrangements: with family Additional living arrangements comments: Occupation/Education: retired Gender identity (if verbalized by the patient): Female Sexual Orientation (if Verbalized by the Patient): Straight or Heterosexual Agree to blood products: Yes Comments At the time of my signature, I reviewed and agree with the nursing past medical, surgical, social, and family history. There is no relevant family history pertinent to the patient complaint. Exam Const: General: cooperative, healthy appearing, comfortable, no acute distress, well developed, alert and well nourished Nutritional Appearance: well nourished Orientation/consciousness: patient oriented x3 Limitations: no limitations HENMT: Head: normal to inspection Eyes: General: appearance normal, both eyes and all related structures Alignment and Position: alignment normal Neck: Neck: normal visual inspection, full ROM, no lymphadenopathy and no meningeal signs Chest: Chest palpation & inspection: normal inspection of the chest Resp: Effort & Inspection: normal respiratory effort and able to speak in complete sentences Cardio: Rate: regular rate Back/Spine/Pelvis: Back: No back tenderness Skin: General skin exam: normal color and no rashes or lesions noted Neuro: General: patient oriented x3, moves all extremities and no meningeal signs Cognition (Neuro): normal cognition Speech: normal speech Extrem: General: normal to inspection, full ROM, capillary refill normal, no calf tenderness, abnormal gait and Limp noted Right lower extremity: ankle Details: tenderness Location: of the lateral malleolus, swelling and normal ROM; no unusual warmth, no abrasions, no lacerations, no ecchymosis, no crepitus, no foreign bodies and no penetrating wound and foot Details: normal capillary refill, toes with normal ROM and vascular exam Details: dorsalis pedis pulse present and normal capillary refill; no tenderness Psych: Appearance: grossly normal and well kempt Mental Status: mental status grossly normal Speech and movement: Normal speech and movement present and Clear speech present Affect: normal affect Attitude: cooperative Course Course Level of Care: Express Care Visit Vital Signs Vital signs: Vital Signs Temperature 97.4 F L 11/17/24 13:13 Pulse Rate 73 11/17/24 13:13 Respiratory Rate 16 11/17/24 13:13 Blood Pressure 129/83 11/17/24 13:13 Pulse Oximetry 100 11/17/24 13:13 Temperature 97.4 F L 11/17/24 13:13 Pulse Rate 73 11/17/24 13:13 Respiratory Rate 16 11/17/24 13:13 Blood Pressure 129/83 11/17/24 13:13 Pulse Oximetry 100 11/17/24 13:13 Reviewed MDM - Extremity (Nontraumatic) MDM Narrative Medical decision making narrative: patient sitting in exam room. Nontoxic, vitals stable. Patient presents with 1 month history of ankle pain. X-ray showed lateral malleolus fracture splint oral and maxillofacial pathologist. Patient to follow-up with orthopedic. Already has an established orthopedic with Marcia at Dr. Jacinto patient appropriate for outpatient treatment with close follow-up Discharge instructions reviewed with patient, as well as provided in writing per nursing staff. The instructions also include specific and strict return/GO TO THE ER as well as f/u information. All questions have been answered, and the patient deny any further questions with discharge and discharge plan. Some parts of this dictation were generated by voice recognition software and may contain typographical and/or grammatical inaccuracies. Imaging Data Radiologist's impression: EXAM/ PROCEDURE: XR ankle RT min 3V - 11/17/2024 13:45 CDT HISTORY: 79 years old Female with pain and swelling lat Rt ankle, no injury COMPARISON: None available TECHNIQUE: 5 view(s) FINDINGS/ IMPRESSION: Age indeterminate fracture of the right lateral malleolus, at the base of the fibula. Given surrounding soft tissue swelling, this is likely an acute fracture. Correlate with point tenderness to assess chronicity. Plantar calcaneal spur. Joint space narrowing, subchondral sclerosis, subchondral cyst formation and osteophyte formation, compatible with mild osteoarthritis. Critical Care Time Critical Care Time Critical Care Time: No Discharge Plan Discharge Clinical Impression: Ankle fracture, lateral malleolus, closed Qualifiers: Encounter type: initial encounter Fracture alignment: nondisplaced Laterality: right Qualified Code(s): S82.64XA - Nondisplaced fracture of lateral malleolus of right fibula, initial encounter for closed fracture Osteoarthritis Qualifiers: Osteoarthritis location: unspecified site Patient Disposition: Home Condition: Stable Instructions: Antibiotic Form, Ankle Fracture (ED), Crutch Instructions (ED) Additional Instructions: follow-up with ortho this week. Call today or 1st thing tomorrow morning for follow-up appointment rest, ice and elevate every 2-3 hours for 15-20 minutes while awake take Tylenol as needed for pain Patient Language: Upper Sorbian Prescriptions: No Action calcium phosphate-vitamin D3 600-125 mg-unit tablet 1 tablet PO DAILY multivitamin Tablet 1 tablet PO DAILY ascorbic acid (vitamin C) [Vitamin C] 500 mg tablet 500 mg PO DAILY Zyrtec 10 mg capsule 10 mg PO ONCE PRN cholecalciferol (vitamin D3) 50 mcg (2,000 unit) capsule 50 mcg PO DAILY Qty: 90 0RF hydrochlorothiazide 12.5 mg capsule 12.5 mg PO DAILY Qty: 90 1RF lisinopril 10 mg tablet 10 mg PO DAILY Qty: 90 1RF zolpidem [Ambien] 5 mg tablet 2.5 mg PO .at bedtime PRN (Reason: sleep) Qty: 30 1RF duloxetine 30 mg capsule,delayed release(DR/EC) 30 mg PO DAILY Qty: 90 1RF amitriptyline 50 mg tablet 50 mg PO QHS Qty: 90 1RF atorvastatin 20 mg tablet 20 mg PO QHS Qty: 90 1RF meloxicam 7.5 mg tablet See Rx Instructions .ROUTE .COMPLEX Qty: 90 0RF Dose Instruction: TAKE 1 TABLET BY MOUTH DAILY Rx Instructions: TAKE 1 TABLET BY MOUTH DAILY famotidine 20 mg tablet 20 mg PO DAILY Qty: 90 1RF Follow-up/Referrals: Sherif Jacinto MD [Physician] - 3 Days [facility] TECH [Primary Care Provider] - Marcia Aponte FNP [Advanced Practice Nurse] - 3 Days ([facility] care follow up ) Time of Disposition: 14:35
== END 2024-11-17 15:01 | disposition home or self-care (01) ==
PROVIDERS: Emergency Provider Nurse Practitioner; PCP Nurse Practitioner Family
DX: S82.64XA Nondisplaced fracture of lateral malleolus of right fibula, initial encounter for closed fracture (principal); X58.XXXA Exposure to other specified factors, initial encounter; M19.071 Primary osteoarthritis, right ankle and foot; I10 Essential (primary) hypertension; E78.5 Hyperlipidemia, unspecified; M85.80 Other specified disorders of bone density and structure, unspecified site; M79.7 Fibromyalgia; K21.9 Gastro-esophageal reflux disease without esophagitis; M17.0 Bilateral primary osteoarthritis of knee
CPT/HCPCS: 29515; 73610; 99214; 99215; G0463

== ENCOUNTER 2024-11-29 10:44 | Outpatient (CLI) | payer OTHER, SELFPAY ==
--- NOTE | ~2024-11-29 | MM_ITS ---
EXAMINATION: MM diagnostic gustavo LT w cricket HISTORY: Follow-up benign left breast biopsy for calcifications. TECHNIQUE: Additional 3-D tomosynthesis images of the left breast were performed and synthetic 2-D im ages were generated. CAD analysis was submitted and interpreted. COMPARISON: Comparison to multiple prior studies sequentially, with oldest reviewed study dated 03/20. BREAST PARENCHYMAL COMPOSITION: Not dense: There are scattered areas of fibroglandular density. FINDINGS: There are no suspicious masses, calcifications or architectural distortion in the left adam st to suggest malignancy. Tissue marker from previous benign biopsy present. There is a small mass in the area of previous biopsy, consistent with postbiopsy hematoma/seroma. IMPRESSION: 1. No evidence for malignancy in the left breast. Benign findings. 2. Routine yearly screening mammogram and regular clinical breast examination are recommended. BI-RADS Category 2: Benign finding(s). Reviewed, dictated and finalized at location A. IMPRESSION: 1. No evidence for malignancy in the left breast. Benign findings. 2. Routine yearly screening mammogram and regular clinical breast examination a re recommended. BI-RADS Category 2: Benign finding(s).
--- OUTSIDE RECORDS SUMMARY | 2024-11-29 12:19 | XMS_ITS | Continuity of Care Document ---
Author Organization [facility] Address [address] [place] [address] Phone Care Team Providers Care Drafter Directional Survey Name Role Phone Hema Klein Unavailable Unavailable Procedures Procedure Date Office/outpatient Visit, Est Post-op Follow-up Visit Post-op Follow-up Visit Post-op Follow-up Visit Remove Cataract, Insert Lens Eye Exam & Treatment IOLMaster-Professional Post-op Follow-up Visit Refraction Post-op Follow-up Visit Remove Cataract, Insert Lens Eye Exam, New Patient IOLMaster Advance Directives Directive Yes / No Effective Date File Name No Information Encounters Encounter Description Practice Location Reason(s) For Visit Diagnoses Date Provider Providers Copied on Encounter Office/outpat ient Visit, Est [facility], [address], [place], [place], [id number], [place] tel:[phone] [facility] No Information 0 Latoya Garrido. [address] [facility] [address], [address], [place]. tel:[phone] [facility], [address], [place], [place], [id number], tel:[phone] [facility] No Information Apr-0 2-201 0 Krishnasamy Hema. [address] [facility] [address], [place], [address], [place]. tel:[phone] [facility], [address], [place], [place], [id number], [place] tel:[phone] [facility] No Information Mar-0 3-201 0 Krishnasamy Hema. [address] [facility] [address], [place], [address], [place]. tel:[phone] [facility], [address], [place], [place], [id number], [place] tel:[phone] [facility] No Information Feb-2 6-201 0 Krishnasamy Hema. [facility] [address], [place], [place], [facility], [place]. tel:[phone] [facility], [address], [place], [place], [id number], [place] tel:[phone] [facility] No Information Feb-2 5-201 0 Krishnasamy Hema. [address] [facility] [address], [place], [address], [place]. tel:[phone] [facility], [address], [place], [place], [address], [place] tel:[phone] [facility] No Information Feb-0 3-201 0 Krishnasamy Hema. [facility] [address], [address], [place]. tel:[phone] Referring Provider: Hema barrera, [facility] [address], [place], [address]. tel:[phone] [facility], [address], [place], [place], [address], [place] tel:[phone] [facility] No Information Oct-2 8-200 8 Edwige Mixon. [address] , [address], [place], [place], [facility], . tel:[phone] [facility], [address], [place], [place], [address], tel:[phone] [facility] No Information Oct- 3-200 8 Cannon OD Diego. [address] [facility] [address] , [address], [place], [place], [facility], . tel:[phone] [facility], [address], [place], [place], [address], tel:[phone] [facility] No Information Oct-1 2-200 8 Edwige Mixon. [address] [facility] , [address], [place], [place], [facility], . tel:[phone] [facility], [address], [place], [place], [address], tel:[phone] [facility] No Information 9-200 8 Edwige Mixon. [address] [facility] [address] , [address], [place], [place], [facility], . tel:[phone] Referring Provider: Apurva Barrera, [facility] [address], [place], [place], [facility]. tel:[phone] Family History Family Member Type Diagnosis Age At Onset No Information Payers Payer name Insurance type Covered alliance party ID Authoriza tion(s) No Information Social History Type Description Quantity Date Captured Comments Sex Female Smoking Status No Information Chief Complaint And Reason For Visit No Information Reason For Referral Reason For Referral No Information History Of Present Illness Encounter Date Complaint History Of Prese nt Illness No Information Functional Status Date Functional Assessmen t No Information Instructions Date Instruction Additional Infor mation No Information Assessments Type Assessment Date No Information Patient Care Teams Name Effective Dates (start - stop) Status Members No Information
--- OUTSIDE RECORDS SUMMARY | 2024-11-29 12:19 | XMS_ITS | Clinical Summary ---
Author Organization [facility] Address [address] [place] [address] Care Team Providers Care Stove Tender Name Role Phone Cassidy Lindsey MD Primary Care Provider Allergies No known active allergies Medications amitriptyline 50 MG tablet Take 50 mg by mouth nightly at bedtime. Active DULoxetine 30 MG capsule Take by mouth daily. Active meloxicam 7.5 MG tablet Take 7.5 mg by mouth daily. Active Calcium Carbonate-Vit D-Min (CALCIUM 1200 OR) Active vitamin D3, cholecalciferol , 5000 UNITS capsule Take 1 capsule by mouth daily. Active Multiple Vitamin (MULTIVITAMIN ADULT OR) Take 1 tablet by mouth daily. Active glucosamine-cho ndroitin 500-400 MG Cap Take 1 capsule by mouth daily. Active Active Problems No known active problems Family History Medical History Relation Comments No Known Problems Daughter Heart Father pacemaker CHF Mother No Known Problems Sister No Known Problems Son Relation Status Comments Daughter Alive Father Mother Sister Alive Son Alive Social History Tobacco Use Types Packs/Day Years Used Date Smoking Tobacco: Never Smokeless Tobacco: Never Alcohol Use Standard Drinks/Week Comments Not Currently 0 (1 standard drink = 0.6 oz pur e alcohol) less than a drink per week Comments No Sex and Gender Information Value Date Recorded Sex Assigned at Not on file Legal Sex Female 3:30 PM CDT Gender Identity Not on file Sexual Orientation Not on file Last Filed Vital Signs Vital Sign Reading Time Taken Comments Blood Pressure 162/75 06/07/2021 10:31 AM CDT Pulse 75 06/07/2021 10:31 AM CDT Temperature 36.2 C (97.2 F) 06/07/2021 10:31 AM CDT Respiratory Rate 15 06/07/2021 10:31 AM CDT Oxygen Saturation 100% 06/07/2021 10:31 AM CDT Inhaled Oxygen Concentration - - Weight 85.7 kg (188 lb 15 oz) 06/07/2021 6:30 AM CDT Height 167.6 cm (5' 6 ) 06/07/2021 6:30 AM CDT Body Mass Index 30.49 06/07/2021 6:30 AM CDT Plan of Treatment Health Maintenance Due Date Last Done Comments Hepatitis C 1963 DTaP, Tdap and Td Vaccines ( 1 - Tdap) 1965 Pneumococcal Vaccine: 50+ Ye ars (1 of 1 - PCV) 1996 Zoster Vaccines (1 of 2) 1996 Annual Medicare Wellness Visit 2011 Dexa Scan (General) 2011 RSV Immunization or 60+ Years (1 - 1-dose 75+ series) 2021 COVID-19 Vaccine ( - 2023-2 5 season) 2024 Meningococcal B Vaccine Aged Out No l onger eligible based on patient's age to complete this topic Meningococcal Vaccine Aged Out No dionisio vlad eligible based on patient's age to complete this topic RSV Immunizations Under 20 Months Aged Out No longer eligible based on patient's age to complete this topic Insurance [employer] Care Teams Stove Tender Relationship Specialty Start Date End Date Cassidy Lindsey MD [address] [place] [address] PCP - General FAMILY PRACTICE 06/05/21
--- OUTSIDE RECORDS SUMMARY | 2024-11-29 12:19 | XMS_ITS | Clinical Summary ---
Author Organization [facility] Address [address] [place] [address] Care Team Providers Care Boxing Trainer Name Role Phone Juan Stringer MD Primary Care Provider [phone] Source Comments [facility],non-owned Affiliates and Associated Physician Practices is amultiple site organization consisting of ambulatory clinics and hospital sitesin [place], [place], [place] and [place]. This disclosure is being madepursuant to the Care Everywhere program and may not contain all information available regarding this patient. Last updated 18.[facility] Allergies No known active allergies Medications * Be aware that medications may not be up to date on this document. Alwaysverify current medications with the patient. zolpidem (AMBIEN) 5 MG tablet as needed 11/21/2021 Active meloxicam (MOBIC) 7.5 MG tablet Take 7.5 mg by mouth once daily 12/13/2021 Active lisinopril (PRINIVIL; ZESTRIL) 10 MG tablet Take 10 mg by mouth once daily 12/17/2021 Active famotidine (PEPCID) 20 MG tablet Take 20 mg by mouth once daily 12/16/2021 Active DULoxetine (CYMBALTA) 30 MG capsule Take 1 capsule by mouth once daily Active vitamin D3 (CHOLECALCIFERO L) 125 MCG (5000 UT) capsule Take 1 capsule by mouth once daily Active amoxicillin-cla vulanate (AUGMENTIN) 875-125 MG tablet TAKE 1 TABLET BY MOUTH EVERY 12 HOURS FOR 7 DAYS 02/07/2022 Active amitriptyline (ELAVIL) 50 MG tablet Take 50 mg by mouth at bedtime 11/30/2021 Active Active Problems Problem Noted Date Diagnosed Date Headache 05/24/2015 Other specified disorders of bone density and structure, unspecified site 08/29/2009 Fibromyalgia 08/29/2009 Family History Medical History Relation Name Comments Cancer - Breast Maternal Grandmother Elevated Lipids Mother Heart Disease Mother Osteoporosis Mother Relation Name Status Comments Maternal Grandmother Mother Social History Tobacco Use Types Packs/Day Years Used Date Smoking Tobacco: Never Smokeless Tobacco: Never Comments Unknown Sex and Gender Information Value Date Recorded Sex Assigned at Not on file Legal Sex Female 5:55 PM COMPENSATOR Gender Identity Not on file Sexual Orientation Not on file Last Filed Vital Signs Vital Sign Reading Time Taken Comments Blood Pressure 156/82 02/11/2022 2:23 PM CDT Pulse 88 02/11/2022 2:23 PM CDT Temperature 36.7 C (98.1 F) 02/11/2022 2:23 PM CDT Respiratory Rate - - Oxygen Saturation - - Inhaled Oxygen Concentration - - Weight 81.6 kg (180 lb) 02/11/2022 2:23 PM CDT Height 167.6 cm (5' 6 ) 02/11/2022 2:23 PM CDT Body Mass Index 29.05 02/11/2022 2:23 PM CDT Plan of Treatment Health Maintenance Due Date Last Done Comments BONE DENSITY TESTING 1945 MEDICARE AWV 12 MONTHS 1945 HEPATITIS C SCREENING 07/29/1963 DTAP/TDAP/TD VACCINES (1 - Tdap) 1965 PNEUMOCOCCAL VACCINE 50+ (1 of 1 - PCV) 1996 ZOSTER VACCINE (1 of 2) 1996 Respiratory Syncytial Virus (RSV) Vaccine Pt: or over 60 yrs (1 - 1-dose 75+ series) 2021 COVID-19 VACCINE ( - 2023-2 5 season) 2024 DEPRESSION SCREENING 08/10/2024 INFLUENZA VACCINE (Season Ended) 2025 HEPATITIS B VACCINE Aged Out No longe r eligible based on patient's age to complete this topic HIB VACCINE Aged Out No longer eligi ble based on patient's age to complete this topic HPV VACCINE Aged Out No longer eligi ble based on patient's age to complete this topic MENINGOCOCCAL (Group B) VACC INE SHARED DECISION-MAKING Aged Out No longer eligibl e based on patient's age to complete this topic MENINGOCOCCAL GROUPS A/C/Y/W VACCINE Aged Out No longer eligible b ased on patient's age to complete this [place] [address] [facility] [place] [id number] [place] [address] [facility] MEDICARE SELF PAY NO INSURANCE Member Subscriber Plan / Payer (Ef fective for All Dates) Name:Loida Laurent Member ID:Not on file Relation to Subscriber:Not on file Name:LOIDA LAURENT Subscriber ID:Not on file (Home) Address: [address] [place] [address] [place] [address] Payer ID:Not on file Group ID:Not on file Type:Self Pay Address: [place], [place] Care Teams Boxing Trainer Relationship Specialty Start Date End Date Juan Stringer MD [address] [place] [address] PCP - General 06/15/08
--- OUTSIDE RECORDS SUMMARY | 2024-11-29 12:20 | XMS_ITS | Referral Summary ---
Author Organization [facility] Address [address] [place] [id number] Care Team Providers Care Valve Lapper Name Role Phone Cassidy Lindsey MD Primary Care Provider Allergies Active Allergy Reactions Criticality Noted Date Comments Codeine Nausea only Low 02/07/2022 Medications amitriptyline (ELAVIL) 50 mg tablet 11/23/2017 Active zolpidem (AMBIEN) 5 mg tabletIndication s:Sleep-Onset Insomnia 0 02/16/2018 Active gabapentin (NEURONTIN) 100 mg capsule 05/04/[address] (CYMBALTA) 30 mg capsule Take 30 mg by mouth daily 01/09/2022 Active famotidine (PEPCID) 20 mg tablet Take 20 mg by mouth daily 12/16/2021 Active lisinopriL (PRINIVIL,ZESTRI L) 10 mg tablet Take 10 mg by mouth daily 12/17/2021 Active meloxicam (MOBIC) 7.5 mg tablet Take 7.5 mg by mouth daily 12/13/2021 Active Active Problems Problem Noted Date Diagnosed Date Closed fracture of right proximal humerus 2017 Social History Tobacco Use Types Packs/Day Years Used Date Smoking Tobacco: Never Smokeless Tobacco: Never Personal Safety Answer Date Recorded Getting School Help Needed Not on file 10/09 Comments Unknown Sex and Gender Information Value Date Recorded Sex Assigned at Not on file Legal Sex Female 8:11 AM CDT Gender Identity Female 01/14/2018 10:12 AM CDT Sexual Orientation Not on file Last Filed Vital Signs Vital Sign Reading Time Taken Comments Blood Pressure 170/90 02/07/2022 8:57 AM CDT Pulse 76 02/07/2022 8:57 AM CDT Temperature 36.6 C (97.9 F) 02/07/2022 8:57 AM CDT Respiratory Rate 18 02/07/2022 8:57 AM CDT Oxygen Saturation 100% 02/07/2022 8:57 AM CDT Inhaled Oxygen Concentration - - Weight 83.9 kg (185 lb) 02/07/2022 8:57 AM CDT Height 165.1 cm (5' 5 ) 02/07/2022 8:57 AM CDT Body Mass Index 30.79 02/07/2022 8:57 AM CDT Plan of Treatment Not on file Insurance [address] [facility] [address] [facility] [facility] [address] Care Teams Valve Lapper Relationship Specialty Start Date End Date Cassidy Lindsey MD PCP - General Family Practice 02/07/22
--- OUTSIDE RECORDS SUMMARY | 2024-11-29 12:20 | XMS_ITS | Clinical Summary ---
Author Organization [facility] Address [address] [place] [phone] Care Team Providers Care Machine Shorthand Reporter Name Role Phone Cassidy Lindsey MD Primary [...] Closed fracture of right proximal humerus 2017 Medical History Medical History Date Comments GERD (gastroesophageal reflux disease) Hypertension Family History Medical History Relation Name Comments Heart disease Father Heart disease Mother Relation Name Status Comments Father Mother Social History Tobacco Use Types Packs/Day Years Used Date Smoking Tobacco: Never Smokeless Tobacco: Never Personal Safety Answer Date Recorded Getting School Help Needed Not on file 10/09 Comments Unknown Sex and Gender Information Value Date Recorded Sex Assigned at Not on file Legal Sex Female 8:11 AM CDT Gender Identity Female 01/14/2018 10:12 AM CDT Sexual Orientation Not on file Obstetrics History Last Filed Vital Signs Vital Sign Reading [...] 02/07/2022 8:57 AM CDT Plan of Treatment Health Maintenance Due Date Last Done Comments Depression Screening 1945 Fall Risk Assessment 1945 Hepatitis C Screening 1945 Osteoporosis Screening-Bone Density Scan 1945 DTaP/Tdap/Td Vaccine (1 - Tdap) 1957 Hepatitis B Screening 1964 Pneumococcal vaccine 65+ (1 of 1 - PCV) 1996 Zoster Vaccine (1 of 2) 1996 Well Visit 65+ 2011 Influenza Vaccine (#1) [address] [place] [address] [facility] [place] [address] Care Teams Machine Shorthand Reporter Relationship Specialty Start Date End Date Cassidy Lindsey MD PCP - General Family Practice 02/07/22
== END 2024-11-29 10:45 | disposition home or self-care (01) ==
PROVIDERS: PCP Nurse Practitioner Family; Visit Provider Surgery
DX: R92.1 Mammographic calcification found on diagnostic imaging of breast (principal); R92.8 Other abnormal and inconclusive findings on diagnostic imaging of breast
CPT/HCPCS: 77061; 77065; G0279

== ENCOUNTER 2025-04-07 16:13 | Outpatient (CLI) | payer OTHER, SELFPAY ==
--- NOTE | ~2025-04-07 | US_ITS ---
EXAMINATION: US carotid duplex BI DATE: 04/07/2025 17:00 INDICATION: Syncopal episode and collapse TECHNIQUE: Grayscale, color Doppler, and pulsed Doppler images of the cervical carotid arteries were obtained. The degree of vessel stenosis is placed in one of the following categories: normal, <50%, 50-69%, >=70% but less than near- occlusion, near-occlusion, or total occlusion. Note that percent stenosis relative to normal distal artery lumen diameter is indirectly measured from velocity measurements as described by Kartik, et al. Radiology 2003; 229:340-346. COMPARISON: None. FINDINGS: RIGHT: The right common carotid artery (CCA) peak systolic velocity (PSV) is 88 cm/s. The right internal carotid artery (ICA) PSV is 82 cm/s. The right ICA end- diastolic velocity (EDV) is 25 cm/s. The right ICA/CCA PSV ratio is 0.9. Grayscale and color Doppler images yield an estimate of <50% diameter reduction from plaque in the ICA. The external carotid artery (ECA) PSV is 109 cm/s. There is antegrade flow in the right vertebral artery. LEFT: The left CCA PSV is 72 cm/s. The left ICA PSV is 81 cm/s. The left ICA EDV is 27 cm/s. The left ICA/CCA PSV ratio is 1.1. Grayscale and color Doppler images yield an estimate of <50% diameter reduction from plaque in the ICA. The ECA PSV is 96 cm/s. There is antegrade flow in the left vertebral artery. IMPRESSION: 1. <50% stenosis in the right internal carotid artery. 2. <50% stenosis in the left internal carotid artery. Reviewed, dictated and finalized at location A.
== END 2025-04-07 16:14 | disposition home or self-care (01) ==
PROVIDERS: PCP Nurse Practitioner Family; Visit Provider Nurse Practitioner Family
DX: I65.23 Occlusion and stenosis of bilateral carotid arteries (principal)
CPT/HCPCS: 93880

== ENCOUNTER 2025-06-30 07:31 | Outpatient (CLI) | payer OTHER, SELFPAY ==
--- NOTE | ~2025-06-30 | MM_ITS ---
EXAMINATION: MM screening gustavo BI w cricket HISTORY: Screening TECHNIQUE: Craniocaudal and mediolateral oblique 3-D tomosynthesis images were obtained and synthetic 2-D images were generated. CAD analysis was submitted and interpreted. COMPARISON: Comparison to multiple prior studies sequentially, with oldest reviewed study dated 03/22/2024. BREAST PARENCHYMAL COMPOSITION: Dense: The breasts are heterogeneously dense, which may obscure small masses FINDINGS: There is no evidence of suspicious mass, calcification, or architectural distortion to suggest malignancy in either breast. There has been no suspicious interval change. IMPRESSION: 1. No mammographic evidence of malignancy. 2. Recommend routine screening mammography in one year. BI-RADS Category 1: Negative Reviewed, dictated and finalized at location O. RITY ASSURANCE ANALYST
--- NOTE | ~2025-06-30 | DEXA_ITS ---
Bone Density Report Name: WILL LAURENT Age: 79 Sex: Female Ethnicity: White Date of : 1945 Indication: osteopenia; parental hip fracture; height loss; Referring Provider: JESI GIBSON Study: Bone densitometry was performed. Exam Date: June 30, 2025 Accession number: [id number] Bone Density: Region BMD T-score Z-score Classification AP Spine(L1-L4) 0.902 -1.3 1.3 Osteopenia Femoral Neck (Left) 0.693 -1.4 0.8 Osteopenia Total Hip (Left) 0.803 -1.1 0.9 Osteopenia Femoral Neck (Right) 0.637 -1.9 0.3 Osteopenia Total Hip (Right) 0.804 -1.1 0.9 Osteopenia Total Hip Mean 0.803 -1.1 0.9 Osteopenia World Health Organization criteria for BMD impression classify patients as: Normal (T-score at or above -1.0), Osteopenia (T-score between -1.0 and -2.5), or Osteoporosis (T-score at or below -2.5). 10-year Fracture Risk(1): Major Osteoporotic Fracture 25% Hip Fracture 15% Reported Risk Factors: [place] (), Neck BMD=0.637, BMI=31.1, parental fracture (1) FRAX(R) Version 3.08. Fracture probability calculated for an untreated patient. Fracture probability may be lower if the patient has received treatment. Previous Exams: Region Exam Age BMD T-score BMD Change BMD Change Date g/cm2 vs Baseline vs Previous AP Spine (L1-L4) 06/30/2025 79 0.902 -1.3 0.059 (7.0%)* 0.006 (0.7%) 03/20/2023 77 0.896 -1.4 0.053 (6.3%)* -0.014 (-1.5%) 01/11/2021 75 0.910 -1.2 0.067 (7.9%)* 0.054 (6.3%)* 09/07/2017 72 0.855 -1.7 0.012 (1.5%) 0.012 (1.5%) 04/23/2015 69 0.843 -1.9 Total Hip(Left) 06/30/2025 79 0.803 -1.1 -0.014 (-1.8%) -0.034 (-4.1%) 03/20/2023 77 0.838 -0.9 0.020 (2.4%) 0.032 (4.0%)* 01/11/2021 75 0.805 -1.1 -0.013 (-1.5%) -0.060 (-6.9%) 09/07/2017 72 0.865 -0.6 0.047 (5.7%)* 0.047 (5.7%)* 04/23/2015 69 0.818 -1.0 Total Hip(Right) 06/30/2025 79 0.804 -1.1 -0.040 (-4.8%) -0.014 (-1.7%) 03/20/2023 77 0.818 -1.0 -0.026 (-3.1%) -0.004 (-0.5%) 01/11/2021 75 0.822 -1.0 -0.022 (-2.6%) -0.035 (-4.1%) 09/07/2017 72 0.857 -0.7 0.013 (1.5%) 0.013 (1.5%) 04/23/2015 69 0.844 -0.8 *Denotes significance at 95% confidence level, LSC for AP Spine = 0.022 g/cm2, LSC for Total Hip = 0.027 g/cm2 Clinical Information Provided by Patient: Parent has had a hip fracture Has used the following medications: Vitamin D, Calcium Patient maximum height was 67 Menopause Age: 52 Drinks caffeinated beverages Onset of menses at age 13 Number of children 2 Impression: The patient has low bone mass, based on the Right Femoral Neck T-score. The patient has an estimated ten-year risk of hip fracture of 15% and an estimated ten-year risk of major fracture of 25%, based on the WHO FRAX algorithm. The patient has risk factors, including: parental hip fracture. The BMD for the Total Hip(Left) decreased, changing by -4.1% since the last DXA exam. Discussion: BONE DENSITY IS LOW AT ONE OR MORE SKELETAL SITES. THE PATIENT'S BMD AND CLINICAL RISK FACTORS CONTRIBUTE TO THIS PATIENT'S HIGH RISK OF FRACTURE. This patient's lowest T-score is low at one or more skeletal sites. It meets the World Health Organization's (WHO) criteria for ?low bone mass? (T-score between -1.0 and -2.5). The patient's 10-year risk of hip fracture and 10 year risk of a major osteoporotic fracture as calculated by FRAX exceeds the threshold where pharmacological therapy is recommended by the National Osteoporosis Foundation (NOF). However, all treatment decisions require clinical judgment and consideration of individual patient factors, including patient preferences, comorbidities, previous drug use, risk factors not captured in the FRAX model (e.g., frailty, falls, vitamin D deficiency, increased bone turnover, interval significant decline in bone density) and possible under or overestimation of fracture risk by FRAX. The patient should follow a healthful lifestyle (good nutrition with adequate calcium and vitamin D, and appropriate weight-bearing exercise). Follow-Up: Consider a repeat BMD and Vertebral Fracture Assessment (VFA) exam in 2 years or sooner if medically necessary, to reassess this patient's status. Reported by: TALISHA on 06/30/2025 8:17:00 AM. Reviewed, dictated and finalized at location A.
--- OUTSIDE RECORDS SUMMARY | 2025-06-30 07:35 | XMS_ITS | Clinical Summary ---
Author Organization [facility] Address [address] [facility] [place] [address] Care Team Providers Care Driver Starting Gate Name Role Phone Juan Stringer MD Primary Care Provider [phone] Source Comments [facility],non-owned Affiliates and Associated Physician Practices is amultiple site organization consisting of ambulatory clinics and hospital sitesin [place], [place], [place] and [place]. This disclosure is being madepursuant to the Care Everywhere program and may not contain all information available regarding this patient. Last updated 18.[facility] Allergies No known active allergies Medications * [...] on file Legal Sex Female 5:55 PM MARKLOGIC DEVELOPER Gender Identity Not on file Sexual Orientation [...] 2:23 PM CDT Height 167.6 cm (5' 6) 02/11/2022 2:23 PM CDT Body Mass Index [...] yrs (1 - 1-dose 75+ series) 2021 DEPRESSION SCREENING 08/10/2024 COVID-19 VACCINE ( - 2024-2 6 season) 2025 INFLUENZA VACCINE (#1) 2025 HEPATITIS B VACCINE Aged Out No [...] age to complete [place] [address] [place] [address] [facility] MEDICARE [facility] Address: [facility] CLAIMS [address] [place] [id number] [place] [address] [facility] MEDICARE SELF PAY NO INSURANCE Member Subscriber Plan / Payer (Ef fective for All Dates) Name:Loida Laurent Member ID:Not on file Relation to Subscriber:Not on file Name:LOIAD LAURENT Subscriber ID:Not on file (Home) Address: [address] [place] [address] [place] [address] Payer ID:Not on file Group ID:Not on file Type:Self Pay Address: [place], [place] Care Teams Driver Starting Gate Relationship Specialty Start Date End Date Juan Stringer MD [address] [place] [address] PCP - General 06/15/08
--- OUTSIDE RECORDS SUMMARY | 2025-06-30 07:35 | XMS_ITS | Clinical Summary ---
Author Organization [facility] Address [facility] [place] [address] Care Team Providers Care Cash Poster Name Role Phone Cassidy Lindsey MD Primary [...] Active Active Problems No known active problems Encounters Date Type Department Care Team Description 05/02/2025 12:25 PM CDT - 05/02/2025 11:59 PM CDT Hospital Encounter [facility] [address] [place] [address] Georgia Dumont FNP Discharge Disposition: Home or Self Care (Routine Discharge) 05/02/2025 Travel from Last 3 Months Family History Medical History Relation Comments No [...] 6:30 AM CDT Height 167.6 cm (5' 6) 06/07/2021 6:30 AM CDT Body Mass Index 30.49 06/07/2021 6:30 AM CDT Plan of Treatment Health Maintenance Due Date Last Done Comments Hepatitis C 1963 DTaP, Tdap and Td Vaccines (1 - Tdap) 1965 Annual Medicare Wellness Visit 2011 Dexa Scan (General) 2011 COVID-19 Vaccine ( season) 2025 04/18/2025, 05/11/2024, 05/22/2023, Additional history exists Pneumococcal Vaccine: 50+ Years Completed 10/06/2022, 06/24/2017 Zoster Vaccines Completed 04/07/2023, 10/2022, 06/24/2017 RSV Immunization or 60+ Years Completed 05/03/2024 Influenza Adult Completed 04/18/2025, 09/2023, 04/10/2024, Additional history exists Hepatitis A Vaccines Aged Out No long er eligible based on patient's age to complete this topic Meningococcal B Vaccine Aged Out No l onger eligible based on patient's age to complete this topic Meningococcal Vaccine Aged Out No dionisio vlad eligible based on patient's age to complete this topic RSV Immunizations Under 20 Months Aged Out No longer eligible based on patient's age to complete this topic Procedures Procedure Name Priority Date/Time Associated Diagnosis Comments MRI BRAIN WO CON Routine 05/02/2025 1:13 PM CDT Syncope and collapse Unspecified visual disturbance from Last 3 Months Results * MRI BRAIN WO CON (05/02/2025 1:13 PM CDT) Anatomical Region Laterality Modality Head Magnetic Resonan ce 05/11/2025 11:3 9 PM CDT Impressions 05/11/2025 11:44 PM CDT IMPRESSION: 1. No acute intracranial abnormalities identified. 2. Mild generalized cerebral atrophy. 3. Mild to moderate chronic small vessel ischemic changes in the white matter. Referred By: GEORGIA DUMONT Interpreted By: Lon Ramos DO, 05/11/2025 11:39 PM Narrative 05/11/2025 11:44 [place] [address] EXAMINATION: MRI BRAIN WO CON HISTORY: Dizziness. Syncope. Collapse. Left eye visual disturbance. COMPARISON: None. TECHNIQUE: Multisequence and multiplanar MR images of the brain without the use of intravenous contrast. FINDINGS: There is no diffusion restriction. No evidence of acute infarction. No evidence of acute intracranial hemorrhage, edema, or mass effect. No evidence of subdural or epidural hematoma. Mild generalized cerebral atrophy. Mild to moderate chronic small vessel ischemic changes within the deep and periventricular white matter. No acute-appearing white matter signal abnormalities. No worrisome T1 or gradient signal abnormalities. The sagittal midline structures are negative for acute appearing abnormality. The visualized major intracranial arterial flow voids appear normal caliber. No acute appearing orbital abnormalities. The paranasal sinuses and mastoid air cells are clear. Procedure Note Lon aRmos DO - 05/11/2025 [place] [id number] EXAMINATION: MRI BRAIN WO CON HISTORY: Dizziness. Syncope. Collapse. Left eye visual disturbance. COMPARISON: None. TECHNIQUE: Multisequence and multiplanar MR images of the brain without the use ofintravenous contrast. FINDINGS: There is no diffusion restriction. No evidence of acute infarction. Noevidence of acute intracranial hemorrhage, edema, or mass effect. Noevidence of subdural or epidural hematoma. Mild generalized cerebral atrophy. Mild to moderate chronic small vesselischemic changes within the deep and periventricular white matter. Noacute-appearing white matter signal abnormalities. No worrisome T1 orgradient signal abnormalities. The sagittal midline structures are negative for acute appearingabnormality. The visualized major intracranial arterial flow voids appearnormal caliber. No acute appearing orbital abnormalities. The paranasalsinuses and mastoid air cells are clear. IMPRESSION: 1. No acute intracranial abnormalities identified. 2. Mild generalized cerebral atrophy. 3. Mild to moderate chronic small vessel ischemic changes in the whitematter. Referred By: GEORGIA DUMONT Interpreted By: Lon Ramos DO, 05/11/2025 11:39 PM us Georgia Dumont PACKAGE SORTER MRI Final Result from Last 3 Months Insurance [employer] Care Teams Cash Poster Relationship Specialty Start Date End Date Cassidy Lindsey MD [address] [place] [address] PCP - General FAMILY PRACTICE 06/05/21
--- OUTSIDE RECORDS SUMMARY | 2025-06-30 07:35 | XMS_ITS | Clinical Summary ---
Author Organization [facility] Address [address] [place] [id number] Care Team Providers Care Digital Designer Name Role Phone Cassidy Lindsey MD Primary [...] 8:57 AM CDT Height 165.1 cm (5' 5) 02/07/2022 8:57 AM CDT Body Mass Index 30.79 02/07/2022 8:57 AM CDT Plan of Treatment Not on file Insurance [id number] [facility] [place] [id number] [place] [address] HEALTHCARE Care Teams Digital Designer Relationship Specialty Start Date End Date Cassidy Lindsey MD PCP - General Family Practice 02/07/22
== END 2025-06-30 07:32 | disposition home or self-care (01) ==
LOC: ANHFOHIMG 07:33
PROVIDERS: PCP Nurse Practitioner Family; Visit Provider Surgery
DX: Z12.31 Encounter for screening mammogram for malignant neoplasm of breast (principal); Z78.0 Asymptomatic menopausal state; M85.88 Other specified disorders of bone density and structure, other site; M85.852 Other specified disorders of bone density and structure, left thigh; M85.851 Other specified disorders of bone density and structure, right thigh
CPT/HCPCS: 77063; 77067; 77080